=== PATIENT | female | born 2000 | race Caucasian/White ===

== ENCOUNTER 2023-09-09 15:57 | Emergency (ER) | payer BC, OTHER | END 2023-09-09 17:29 | disposition home or self-care (01) | LOC: ERS 15:57 | DX: R29.898 Other symptoms and signs involving the musculoskeletal system (principal); V89.2XXA Person injured in unspecified motor-vehicle accident, traffic, initial encounter; Y92.481 Parking lot as the place of occurrence of the external cause | CPT/HCPCS: 99283 ==